=== PATIENT | female | born 1990 | race Caucasian/White ===

== ENCOUNTER 2021-01-04 13:32 | Outpatient (CLI) | payer OTHER, SELFPAY | END 2021-01-04 13:33 | disposition home or self-care (01) | LOC: ANHCOVIDVC 13:32 | DX: Z23 Encounter for immunization (principal) | CPT/HCPCS: 0001A; 91300 ==

== ENCOUNTER 2021-01-25 13:27 | Outpatient (CLI) | payer OTHER, SELFPAY | END 2021-01-25 13:28 | disposition home or self-care (01) | LOC: ANHCOVIDVC 13:27 | DX: Z23 Encounter for immunization (principal) | CPT/HCPCS: 0002A; 91300 ==